=== PATIENT | female | born 1970 | race Caucasian/White ===

== ENCOUNTER 2021-05-12 22:52 | Emergency (ER) | payer BC, OTHER ==
[~2021-05-12] VITALS: Ht 162.6 cm; Wt 79.5 kg
[2021-05-12] MEDS ORDERED: IBUP-1114 PO (23:04)
[2021-05-13 01:07] LABS: HEMOGLOBIN 12.4 g/dl (12.0-15.5); MEAN CORPUSCULAR HEMOGLOBIN 30.5 pg (27.0-33.0); MEAN CORPUSCULAR HGB CONC 31.8 g/dl (32.0-36.5); MEAN CORPUSCULAR VOLUME 96.1 fl (80.0-96.0); PLATELET COUNT, AUTOMATED 328 10^3/uL (150-450); RED BLOOD COUNT 4.06 10^6/uL (4.00-5.40); WHITE BLOOD COUNT 8.3 10^3/uL (4.0-10.0)
[2021-05-13 01:28] LABS: ATYPICAL LYMPH 2 % (0-5); BASOPHILS 1 % (0-1); EOSINOPHILS 1 % (0-3); HYPOCHROMASIA 1+; LYMPHOCYTES 30 % (16-44); MONOCYTES 9 % (0-5); NEUTROPHILS 55 % (28-66); PLATELET ESTIMATE NORMAL (NORMAL)
[2021-05-13 01:36] LABS: ALBUMIN 3.6 GM/DL (3.2-5.2); ALT/SGPT 19 U/L (12-78); AMYLASE 32 U/L (25-115); BILIRUBIN,DIRECT < 0.1 MG/DL (0.0-0.2); BILIRUBIN,TOTAL 0.2 MG/DL (0.2-1.0); BLOOD UREA NITROGEN 13 MG/DL (7-18); C REACTIVE PROTEIN QUANTITATIV 3.18 MG/DL (0.00-0.30); CARBON DIOXIDE LEVEL 28 MEQ/L (21-32); CHLORIDE LEVEL 107 MEQ/L (98-107); CK-MB VALUE MASS < 1.0 NG/ML (<3.6); CPK CREATINE PHOSPHOKINASE 43 U/L (26-192); CREATININE FOR GFR 0.68 MG/DL (0.55-1.30); GLOMERULAR FILTRATION RATE > 60.0 (>51); GLUCOSE, FASTING 110 MG/DL (70-100); MB/CK RELATIVE INDEX 2.33 (< OR =4); POTASSIUM SERUM 3.9 MEQ/L (3.5-5.1); SODIUM LEVEL 139 MEQ/L (136-145); TOTAL PROTEIN 7.2 GM/DL (6.4-8.2); TROPONIN I < 0.02 NG/ML (< 0.10)
[2021-05-13] MEDS ORDERED: CEPHALEXIN 500 MG CAP PO ONE (03:55)
[2021-05-13] MEDS ORDERED: ONDANSETRON 4MG/2ML VIAL IV ONE (03:55)
[2021-05-13] MEDS ORDERED: ONDA4TAB6 PO (03:55)
[2021-05-13] MEDS ORDERED: CEPH500C PO (03:55)
[2021-05-13 04:01] VITALS: BP 123/77
== END 2021-05-13 04:00 | disposition home or self-care (01) ==
LOC: M ED 22:52
DX: L03.319 Cellulitis of trunk, unspecified (principal); R51.9 Headache, unspecified
CPT/HCPCS: 80048; 80076; 82150; 82550; 82553; 83605; 84484; 85025; 86140; 87040; 93041; 94760; 99285; J2405

== ENCOUNTER 2021-11-09 13:33 | Emergency (ER) | payer OTHER ==
[~2021-11-09] VITALS: Ht 162.6 cm; Wt 78.7 kg
[~2021-11-09 13:33] MED LIST: CEPH500C PO; IBUP-1114 PO; ONDA4TAB6 PO
[2021-11-09] MEDS ORDERED: ONDANSETRON 4MG/2ML VIAL IV ONE (14:45)
[2021-11-09] MEDS ORDERED: KETOROLAC 30 MG/ML 1ML VIAL IV ONE (14:45)
[2021-11-09 15:33] LABS: BASO # 0.1 10^3/uL (0.0-0.2); BASO % 0.3 % (0.0-1.0); EOS % 0.1 % (0.0-3.0); HEMATOCRIT 41.5 % (36.0-47.0); HEMOGLOBIN 13.5 g/dl (12.0-15.5); LYMPH # 1.3 10^3/uL (1.5-5.0); LYMPH % 6.9 % (24.0-44.0); MEAN CORPUSCULAR HGB CONC 32.5 g/dl (32.0-36.5); MEAN CORPUSCULAR VOLUME 95.4 fl (80.0-96.0); MONO # 0.8 10^3/uL (0.0-0.8); MONO % 4.1 % (2.0-8.0); NEUTROPHILS # 16.2 10^3/uL (1.5-8.5); PLATELET COUNT, AUTOMATED 327 10^3/uL (150-450); RED BLOOD COUNT 4.35 10^6/uL (4.00-5.40); WHITE BLOOD COUNT 18.4 10^3/uL (4.0-10.0)
[2021-11-09] MEDS ORDERED: NS 1,000 ML IV ONE (15:45)
[2021-11-09 15:47] LABS: BILIRUBIN,DIRECT 0.1 MG/DL (0.0-0.2); BILIRUBIN,TOTAL 0.3 MG/DL (0.2-1.0); TOTAL PROTEIN 7.7 GM/DL (6.4-8.2)
[2021-11-09] MEDS ORDERED: ISOVUE-370 76% 100ML VIAL As Ordered ONE (15:55)
[2021-11-09 18:46] LABS: RSV AMPLIFICATION NEGATIVE (NEGATIVE)
[2021-11-09] MEDS ORDERED: ZOFR4TAB16 PO (21:52)
[2021-11-09] MEDS ORDERED: ONDANSETRON 4 MG ORAL DISINTEGRATING TAB PO ONE (22:00)
[2021-11-09 22:06] VITALS: BP 111/78
== END 2021-11-09 22:30 | disposition home or self-care (01) ==
LOC: M ED 13:33
DX: K80.50 Calculus of bile duct without cholangitis or cholecystitis without obstruction (principal); R11.2 Nausea with vomiting, unspecified; K76.9 Liver disease, unspecified; Z98.51 Tubal ligation status
CPT/HCPCS: 74177; 74181; 76705; 80047; 80076; 81001; 83605; 83690; 85025; 87086; 87631; 96361; 96374; 99284; J1885; J2405; Q0162; Q9967